=== PATIENT | male | born 1985 | race African-American/Black ===

== ENCOUNTER → 2016-10-09 | Outpatient (CLI) | payer OTHER ==
[2016-10-09 12:39] LABS: SPERM MORPHOLOGY SENT TO REFERENC LAB
[2016-10-09 13:41] LABS: SA DILUTION CNT 1 57; SA DILUTION CNT 2 62; SA DILUTION FACTOR 2; SA NONMOTILE CONCENTRATION 6.9 X10^6/mL; SA NONMOTILE COUNT1 67; SA NONMOTILE COUNT2 71; SA ROUND CELL COUNT1 9; SA ROUND CELL COUNT2 10; SPERM PROGRESSION 4
== END ==
LOC: LAB 12:04
PROVIDERS: ATTEND Specialist
DX: N46.9 Male infertility, unspecified (principal)
CPT/HCPCS: 36415; 89320